=== PATIENT | male | born 1995 | race Caucasian/White ===

== ENCOUNTER 2016-09-01 13:04 | Emergency (ER) | payer OTHER ==
--- NOTE | 2016-09-01 14:34 | EDDOCDS ---
Physician Documentation [facility] Name: Graham Scott Age: 21 yrs Sex: Male : 1995 Arrival Date: 09/01/2016 Time: 13:04 Bed PR Private MD: IZABEL FOSS Disposition: 09/01/16 14:25 Discharged to Home/Self Care. Impression: Contusion of right hand, Abrasion of right hand. - Condition is Stable. - Discharge Instructions: Abrasion, Hand Contusion. - Prescriptions for Ibuprofen 600 mg Oral Tablet - take 1 tablet by ORAL route every 6 hours As needed take with food; 30 tablet. - Medication Reconciliation, Local Pharmacy Hours form. - [facility]; When: Call to arrange an appointment; Reason: Recheck today's complaints, Continuance of care. - Problem is new. - Symptoms are unchanged. Historical: - Allergies: no known allergies; - Home Meds: 1. none - PMHx: none; - PSHx: Tonsillectomy; lymph node removal; - Social history: Smoking status: Patient uses tobacco products, light tobacco smoker. No barriers to communication noted, The patient speaks fluent Kinyarwanda. - Family history: Not pertinent. - : The pt / caregiver states he / she is not on anticoagulants. Home medication list is obtained from the patient. - Exposure Risk Screening:: None identified. Vital Signs: 09/01 13:05 BP 135 / 67 RA Sitting (auto/lg); Pulse 83; Resp 18; Temp 98.7(O); Pulse Ox 97% on R/A; bnb Weight 88.45 kg / 195 lbs; Height 5 ft. 9 in. (175.26 cm); Pain 7/10; 14:12 BP 132 / 75; Pulse 75; Resp 18; Temp 99.5(TE); Pulse Ox 97% on R/A; Pain 6/10; ar3 13:05 Body Mass Index 28.80 (88.45 kg, 175.26 cm) bnb MDM: 13:22 Hand, Complete Ordered. EDMS 13:35 Financial registration complete. mm15 13:37 [facility] Payment Agreement was scanned into [employer] and attached to record. mm15 14:26 Yovani Wrap ordered. ar2 Signatures: Dispatcher [employer] EDMS Rich Villa PA-C PAEndy ar2 Ashely Laureano RN RN rs3 Shala Brito RN RN pml Evelyn Dumont mm15 The chart was reviewed and I authenticate all verbal orders and agree with the evaluation and treatment provided.Attachments: 13:37 [facility] Payment Agreement mm15 MTDD
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
--- NOTE | 2016-09-03 15:34 | EDDOCDS ---
Physician Documentation [facility] Name: Graham Scott Age: 21 yrs Sex: Male : 1995 Arrival Date: 09/01/2016 Time: 13:04 Bed PR Private MD: IZABEL FOSS Disposition: 09/01/16 14:25 Discharged to Home/Self Care. Impression: Contusion of right hand, Abrasion of right hand. - Condition is Stable. - Discharge Instructions: Abrasion, Hand Contusion. - Prescriptions for Ibuprofen 600 mg Oral Tablet - take 1 tablet by ORAL route every 6 hours As needed take with food; 30 tablet. - Medication Reconciliation, Local Pharmacy Hours form. - [facility]; When: Call to arrange an appointment; Reason: Recheck today's complaints, Continuance of care. - Problem is new. - Symptoms are unchanged. Historical: - Allergies: no known allergies; - Home Meds: 1. none - PMHx: none; - PSHx: Tonsillectomy; lymph node removal; - Social history: Smoking status: Patient uses tobacco products, light tobacco smoker. No barriers to communication noted, The patient speaks fluent Portuguese. - Family history: Not pertinent. - : The pt / caregiver states he / she is not on anticoagulants. Home medication list is obtained from the patient. - Exposure Risk Screening:: None identified. Vital Signs: 09/01 13:05 BP 135 / 67 RA Sitting (auto/lg); Pulse 83; Resp 18; Temp 98.7(O); Pulse Ox 97% on R/A; bnb Weight 88.45 kg / 195 lbs; Height 5 ft. 9 in. (175.26 cm); Pain 7/10; 14:12 BP 132 / 75; Pulse 75; Resp 18; Temp 99.5(TE); Pulse Ox 97% on R/A; Pain 6/10; ar3 13:05 Body Mass Index 28.80 (88.45 kg, 175.26 cm) bnb MDM: 13:22 Hand, Complete Ordered. EDMS 13:35 Financial registration complete. mm15 13:37 [facility] Payment Agreement was scanned into [employer] and attached to record. mm15 14:26 Yovani Wrap ordered. ar2 22:18 T-Sheet-- Draft Copy was scanned into [employer] and attached to record. klr Signatures: Dispatcher [employer] EDRich Rivas PA-C PA-C ar2 Ashely Laureano RN RN rs3 Shala Briot RN RN pml Evelyn Dumont mm15 Adriana Rodriguezr The chart was reviewed and I authenticate all verbal orders and agree with the evaluation and treatment provided.Attachments: 13:37 [facility] Payment Agreement mm15 22:18 T-Sheet-- Draft Copy klr Chart Complete MTDD
--- NOTE | 2016-09-03 15:34 | EDDOCDS ---
Physician Documentation [facility] Name: Graham Scott Age: 21 yrs Sex: Male : 1995 Arrival Date: 09/01/2016 Time: 13:04 Bed PR Private MD: IZABEL FOSS Disposition: 09/01/16 14:25 Discharged to Home/Self Care. Impression: Contusion of right hand, Abrasion of right hand. - Condition is Stable. - Discharge Instructions: Abrasion, Hand Contusion. - Prescriptions for Ibuprofen 600 mg Oral Tablet - take 1 tablet by ORAL route every 6 hours As needed take with food; 30 tablet. - Medication Reconciliation, Local Pharmacy Hours form. - [facility]; When: Call to arrange an appointment; Reason: Recheck today's complaints, Continuance of care. - Problem is new. - Symptoms are unchanged. Historical: - Allergies: no known allergies; - Home Meds: 1. none - PMHx: none; - PSHx: Tonsillectomy; lymph node removal; - Social history: Smoking status: Patient uses tobacco products, light tobacco smoker. No barriers to communication noted, The patient speaks fluent Vietnamese. - Family history: Not pertinent. - : The pt / caregiver states he / she is not on anticoagulants. Home medication list is obtained from the patient. - Exposure Risk Screening:: None identified. Vital Signs: 09/01 13:05 BP 135 / 67 RA Sitting (auto/lg); Pulse 83; Resp 18; Temp 98.7(O); Pulse Ox 97% on R/A; bnb Weight 88.45 kg / 195 lbs; Height 5 ft. 9 in. (175.26 cm); Pain 7/10; 14:12 BP 132 / 75; Pulse 75; Resp 18; Temp 99.5(TE); Pulse Ox 97% on R/A; Pain 6/10; ar3 13:05 Body Mass Index 28.80 (88.45 kg, 175.26 cm) bnb MDM: 13:22 Hand, Complete Ordered. EDMS 13:35 Financial registration complete. mm15 13:37 [facility] Payment Agreement was scanned into [employer] and attached to record. mm15 14:26 Yovani Wrap ordered. ar2 22:18 T-Sheet-- Draft Copy was scanned into [employer] and attached to record. klr Signatures: Dispatcher [employer] EDRich Rivas PA-C PA-C ar2 Ashely Laureano RN RN rs3 Shala Brito RN RN pml Evelyn Dumont mm15 Adriana Rodriguezr The chart was reviewed and I authenticate all verbal orders and agree with the evaluation and treatment provided.Attachments: 13:37 [facility] Payment Agreement mm15 22:18 T-Sheet-- Draft Copy klr Chart Complete MTDD
--- NOTE | 2016-09-04 15:54 | EDDOCDS ---
Physician Documentation [facility] Name: Graham Scott Age: 21 yrs Sex: Male : 1995 Arrival Date: 09/01/2016 Time: 13:04 Bed PR Private MD: IZABEL FOSS Disposition: 09/01/16 14:25 Discharged to Home/Self Care. Impression: Contusion of right hand, Abrasion of right hand. - Condition is Stable. - Discharge Instructions: Abrasion, Hand Contusion. - Prescriptions for Ibuprofen 600 mg Oral Tablet - take 1 tablet by ORAL route every 6 hours As needed take with food; 30 tablet. - Medication Reconciliation, Local Pharmacy Hours form. - [facility]; When: Call to arrange an appointment; Reason: Recheck today's complaints, Continuance of care. - Problem is new. - Symptoms are unchanged. Historical: - Allergies: no known allergies; - Home Meds: 1. none - PMHx: none; - PSHx: Tonsillectomy; lymph node removal; - Social history: Smoking status: Patient uses tobacco products, light tobacco smoker. No barriers to communication noted, The patient speaks fluent Yoruba. - Family history: Not pertinent. - : The pt / caregiver states he / she is not on anticoagulants. Home medication list is obtained from the patient. - Exposure Risk Screening:: None identified. Vital Signs: 09/01 13:05 BP 135 / 67 RA Sitting (auto/lg); Pulse 83; Resp 18; Temp 98.7(O); Pulse Ox 97% on R/A; bnb Weight 88.45 kg / 195 lbs; Height 5 ft. 9 in. (175.26 cm); Pain 7/10; 14:12 BP 132 / 75; Pulse 75; Resp 18; Temp 99.5(TE); Pulse Ox 97% on R/A; Pain 6/10; ar3 13:05 Body Mass Index 28.80 (88.45 kg, 175.26 cm) bnb MDM: 13:22 Hand, Complete Ordered. EDMS 13:35 Financial registration complete. mm15 13:37 [facility] Payment Agreement was scanned into [employer] and attached to record. mm15 14:26 Yovani Wrap ordered. ar2 22:18 T-Sheet-- Draft Copy was scanned into [employer] and attached to record. klr Addendum: 09/04/2016 15:53 Radiology Callback: Radiology results faxed to primary care physician/provider. ft shimon ramírez fp faxed formal report of right hand filom for fu mlg. Signatures: Dispatcher [employer] EDNH Juliana Jenkins MD MD ml Rich Villa PA-C PA-C ar2 Ashely Laureano RN RN rs3 Shala Brito RN RN Evelyn Salazar mm15 Adriana Rodriguez The chart was reviewed and I authenticate all verbal orders and agree with the evaluation and treatment provided.Attachments: 09/01 13:37 [facility] Payment Agreement mm15 22:18 T-Sheet-- Draft Copy [facility]
--- NOTE | 2016-09-04 15:54 | EDDOCDS ---
Physician Documentation [facility] Name: Graham Scott Age: 21 yrs Sex: Male : 1995 Arrival Date: 09/01/2016 Time: 13:04 Bed PR Private MD: IZABEL FOSS Disposition: 09/01/16 14:25 Discharged to Home/Self Care. Impression: Contusion of right hand, Abrasion of right hand. - Condition is Stable. - Discharge Instructions: Abrasion, Hand Contusion. - Prescriptions for Ibuprofen 600 mg Oral Tablet - take 1 tablet by ORAL route every 6 hours As needed take with food; 30 tablet. - Medication Reconciliation, Local Pharmacy Hours form. - [facility]; When: Call to arrange an appointment; Reason: Recheck today's complaints, Continuance of care. - Problem is new. - Symptoms are unchanged. Historical: - Allergies: no known allergies; - Home Meds: 1. none - PMHx: none; - PSHx: Tonsillectomy; lymph node removal; - Social history: Smoking status: Patient uses tobacco products, light tobacco smoker. No barriers to communication noted, The patient speaks fluent Japanese. - Family history: Not pertinent. - : The pt / caregiver states he / she is not on anticoagulants. Home medication list is obtained from the patient. - Exposure Risk Screening:: None identified. Vital Signs: 09/01 13:05 BP 135 / 67 RA Sitting (auto/lg); Pulse 83; Resp 18; Temp 98.7(O); Pulse Ox 97% on R/A; bnb Weight 88.45 kg / 195 lbs; Height 5 ft. 9 in. (175.26 cm); Pain 7/10; 14:12 BP 132 / 75; Pulse 75; Resp 18; Temp 99.5(TE); Pulse Ox 97% on R/A; Pain 6/10; ar3 13:05 Body Mass Index 28.80 (88.45 kg, 175.26 cm) bnb MDM: 13:22 Hand, Complete Ordered. EDMS 13:35 Financial registration complete. mm15 13:37 [facility] [place] Payment Agreement was scanned into [email or web address] and attached to record. mm15 14:26 Yovani Wrap ordered. ar2 22:18 T-Sheet-- Draft Copy was scanned into [email or web address] and attached to record. klr Addendum: 09/04/2016 15:53 Radiology Callback: Radiology results faxed to primary care physician/provider. ft shimon ramírez fp faxed formal report of right hand filom for fu mlg. Signatures: Dispatcher [employer] EDNC Juliana Jenkins MD MD ml Rich Villa PA-C PA-C ar2 Ashely Laureano RN RN rs3 Shala Brito RN RN Evelyn Salazar mm15 Adriana Rodriguez The chart was reviewed and I authenticate all verbal orders and agree with the evaluation and treatment provided.Attachments: 09/01 13:37 [facility] Payment Agreement mm15 22:18 T-Sheet-- Draft Copy klr [facility]
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
--- NOTE | 2016-09-04 15:55 | EDDOCDS ---
Physician Documentation [facility] Name: Graham Scott Age: 21 yrs Sex: Male : 1995 Arrival Date: 09/01/2016 Time: 13:04 Bed PR Private MD: IZABEL FOSS Disposition: 09/01/16 14:25 Discharged to Home/Self Care. Impression: Contusion of right hand, Abrasion of right hand. - Condition is Stable. - Discharge Instructions: Abrasion, Hand Contusion. - Prescriptions for Ibuprofen 600 mg Oral Tablet - take 1 tablet by ORAL route every 6 hours As needed take with food; 30 tablet. - Medication Reconciliation, Local Pharmacy Hours form. - [facility]; When: Call to arrange an appointment; Reason: Recheck today's complaints, Continuance of care. - Problem is new. - Symptoms are unchanged. Historical: - Allergies: no known allergies; - Home Meds: 1. none - PMHx: none; - PSHx: Tonsillectomy; lymph node removal; - Social history: Smoking status: Patient uses tobacco products, light tobacco smoker. No barriers to communication noted, The patient speaks fluent German. - Family history: Not pertinent. - : The pt / caregiver states he / she is not on anticoagulants. Home medication list is obtained from the patient. - Exposure Risk Screening:: None identified. Vital Signs: 09/01 13:05 BP 135 / 67 RA Sitting (auto/lg); Pulse 83; Resp 18; Temp 98.7(O); Pulse Ox 97% on R/A; bnb Weight 88.45 kg / 195 lbs; Height 5 ft. 9 in. (175.26 cm); Pain 7/10; 14:12 BP 132 / 75; Pulse 75; Resp 18; Temp 99.5(TE); Pulse Ox 97% on R/A; Pain 6/10; ar3 13:05 Body Mass Index 28.80 (88.45 kg, 175.26 cm) bnb MDM: 13:22 Hand, Complete Ordered. EDMS 13:35 Financial registration complete. mm15 13:37 [facility] [place] Agreement was scanned into [employer] and attached to record. mm15 14:26 Yovani Wrap ordered. ar2 22:18 T-Sheet-- Draft Copy was scanned into [employer] and attached to record. klr Addendum: 09/04/2016 15:53 Radiology Callback: Radiology results faxed to primary care physician/provider. ft shimno ramírez fp faxed formal report of right hand filom for fu mlg. Signatures: Dispatcher [employer] EDMD Juliana Jenkins MD MD ml Rich Villa PA-C PA-C ar2 Ashely Larueano RN RN rs3 Shala Brito RN RN pml McGrath, Marlynn mm15 Adriana Rodriguez The chart was reviewed and I authenticate all verbal orders and agree with the evaluation and treatment provided.Attachments: 09/01 13:37 [facility] Payment Agreement mm15 22:18 T-Sheet-- Draft Copy klr Chart Complete MTDD
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
== END 2016-09-01 14:33 | disposition home or self-care (01) ==
LOC: M ED 13:04
DX: S60.511A Abrasion of right hand, initial encounter (principal); W17.89XA Other fall from one level to another, initial encounter; Y92.89 Other specified places as the place of occurrence of the external cause; Y93.55 Activity, bike riding; Y99.8 Other external cause status; F17.200 Nicotine dependence, unspecified, uncomplicated